=== PATIENT | male | born 1980 | race Caucasian/White ===

== ENCOUNTER 2020-01-22 20:55 | Emergency (ER) | payer BC, SELFPAY ==
[2020-01-22 21:05] VITALS: BP 143/89; PULSE 98; RESP 19; TEMP 36.6; O2SAT 98
--- NOTE | 2020-01-22 21:05 | PC.NURSE ---
patient to room. staff present with ppe on per protocol
[2020-01-22 21:08] VITALS: BP 145/81; PULSE 92; RESP 17; TEMP 36.7; O2SAT 100; BMI 30.2
== END 2020-01-22 21:13 | disposition home or self-care (01) ==
LOC: ER 21:09
PROVIDERS: Emergency Provider Emergency Medicine; PCP Emergency Medicine
DX: Z46.6 Encounter for fitting and adjustment of urinary device (principal)
CPT/HCPCS: 99281; 99282

== ENCOUNTER 2020-03-19 19:43 | Emergency (ER) | payer BC, SELFPAY ==
[2020-03-19 19:54] VITALS: BP 159/113; PULSE 87; RESP 17; TEMP 36.7; O2SAT 95; BMI 24.3
--- NOTE | 2020-03-19 19:58 | CT_ITS ---
PROCEDURE: CT SHOULDER LT WO CON CLINICAL HISTORY: injury Left shoulder pain, neck pain following injury COMPARISON: No exams were available for comparison TECHNIQUE: Axial images obtained with sagittal and coronal reformats. All CT scans at the facility use one or more dose reduction, viz: automated exposure control, ma/kV adjustment per patient size (including targeted exams where dose is matched to indication, i.e. head), or iterative reconstruction technique. FINDINGS: Unstable flexion teardrop fracture is present at C5-C6. Please see cervical spine report for further description. No acute shoulder fracture or dislocation is evident. The glenohumeral joint is intact. Prominent hypertrophic changes are present at the coracoid clavicular joint. Scattered small nodes are present in the axilla and supraclavicular region. The underlying lungs are clear IMPRESSION: 1. No acute fracture of the shoulder. 2. Prominent hypertrophic change of the coracoclavicular joint 3. Hyperflexion distraction injury at C5-C6 described in the CT C-spine report Dictated by: Dionicio Becker MD 03/19/2020 23:20 Electronically signed by Dionicio Becker MD in [place] 03/19/2020 23:20
--- NOTE | 2020-03-19 19:58 | CT_ITS ---
PROCEDURE: CT CERVICAL SPINE WO CON CLINICAL INDICATION: injury Posttraumatic pain, left shoulder neck pain, COMPARISON: No exams were available for comparison TECHNIQUE: Axial images obtained with sagittal and coronal reformats. All CT scans at the facility use one or more dose reduction, viz: automated exposure control, ma/kV adjustment per patient size (including targeted exams where dose is matched to indication, i.e. head), or iterative reconstruction technique. Axial spiral CT scanning performed of the cervical spine beginning at the base of the skull and continuing to the upper T-spine. 3-D multiplanar reconstruction with 3-D manipulation of volumetric data set in image rendering was completed by the radiologist and/or technologist with the supervision of the radiologist on independent workstation. FINDINGS: There is a hyper flexion distraction injury at C5-C6 with comminuted fractures in fragmentation of the anterior and posterior C5 and C6 vertebral bodies with narrowing of the C5-C6 intervertebral disc space anteriorly in widening of the posterior C5-C6 interspace as well as grade 1 retrolisthesis of C5 on C6 of 6 mm. There is abnormal widening of both C5-C6 facets. There is kyphosis at C5-C6. The anterior inferior aspect of C5 rests on the superior endplate of C6 5 mm posterior to the anterior aspect of C6 with bony fragments noted anteriorly. There is resultant narrowing of the canal at 11 mm and right lateral recess and right foraminal narrowing. There is mild right lateral subluxation of C5 on C6. There is prevertebral soft tissue swelling at C5-C6 with hypoattenuation within the prevertebral soft tissues consistent with hematoma. There is likely disruption of the anterior longitudinal ligament and posterior longitudinal ligament and the interspinous ligament. There is mild degenerative disc disease at C6-C7 Lung apices are clear IMPRESSION: 1. Flexion teardrop fracture distraction injury at C5-C6 with disruption of the anterior, middle, and posterior columns. There is posterior distraction of the C5 vertebral body of 6 mm with borderline canal stenosis and right lateral recess narrowing. Suggest MRI for more thorough evaluation to determine the status of the spinal cord. This is an unstable injury. Recommend emergent stabilization and neurosurgical consultation 2. Associated prevertebral soft tissue hematoma 3. [facility] report rendered 03/19/2020 at 8:12 p.m. Dictated by: Dionicio Becker MD 03/19/2020 23:13 Electronically signed by Dionicio Becker MD in [place] 03/19/2020 23:13
--- NOTE | 2020-03-19 20:16 | PC.NURSE ---
c-collar in place. pt to ct
--- NOTE | 2020-03-19 20:40 | PC.NURSE ---
critical report received from ad per dr harper.
--- NOTE | 2020-03-19 20:45 | HMH.EDGENADL ---
ED Disposition Clinical Impression: Cervical spine instability Cervical spine fracture Qualifiers: Encounter type: initial encounter Cervical vertebra fracture level: C5 Fracture type: closed Fracture morphology: unspecified fracture morphology Fracture alignment: displaced Qualified Code(s): S12.400A - Unspecified displaced fracture of fifth cervical vertebra, initial encounter for closed fracture Disposition: Xfer Short-Term Hosp Condition on Discharge: Fair Referrals: Provider,Referral, MD [Primary Care Provider] - Forms: Transfer Record - ED - Critical Care Critical Care Time: No Attestation: On 03/19/20, the high probability of a clinically significant, sudden or life threatening deterioration of the following system(s) required my full and direct attention, intervention and personal management. The time I documented below is in addition to time spent performing reported procedures but includes the following listed in this critical care notation. Medical Decision Making - Medical Records Medical records reviewed: Yes: I reviewed the patient's medical records. - [place] Inquiry Pt receiving controlled substance: No Vital Signs: 03/19/20 19:54 Temperature 98.1 F Temperature Source Oral Pulse Rate [Right Brachial] 87 Respiratory Rate 17 Blood Pressure [Right Arm] 159/113 H Blood Pressure Mean [Right Arm] 128 Blood Pressure Source [Right Arm] Automatic Cuff Blood Pressure Position [Right Arm] Sitting 02 Sat by Pulse Oximetry 95 Oxygen Delivery Method Room Air Orders (Tests/Meds): ORDERS Category Date Time Status CT cervical spine wo con Stat Cat Scan 03/19/20 19:[address] shoulder LT wo con Stat Cat Scan 03/19/20 19:58 Taken - CT Data CT Scan: C-Spine, Other (lt shoulder ) Time Received: 21:[address] Reviewed: Yes: I have viewed the radiologist's interpretation Preliminary Findings: Abnormal (see report - unstable fx ) - Physician Consults Physician Consulted: pippa Reason -: Transfer to another facilty General Adult HPI - General Chief complaint: PAIN Stated complaint: L Shoulder Pain Across Back and up into neck Time Seen by Provider: 03/19/20 20:46 Mode of Arrival: Family Vehicle Source of Information: Patient, Medical Record Limitations: No Limitations Description of Symptoms (Recalled from ER Triage Doc. by RN): 7-8 days prior was wrestling with a friend acting stupid when he injured his left shoulder. states he feels like there is a grinding sensation that is not improving and now it radiates up into his neck - History of Present Illness HPI narrative: acute lt shoulder and neck injury after wrestling with son and fell on lt shoulder Onset (ago): day(s) Location: chest, upper extremity Severity: moderate Quality: sharp Associated symptoms: denies other symptoms Treatments prior to arrival: none - Related Data Allergies Allergy/AdvReac Type Severity Reaction Status Date / Time CODEINE Allergy Mild CLOSES Uncoded 10/02/17 15:09 THROAT SULFA (SULFONAMIDE) Allergy Mild DARÍO Uncoded 10/02/17 15:09 [facility] History - Hepatitis A Screen Drug use history?: No High risk sexual behaviors?: No History of sexually transmitted infection?: No Currently employed?: No Childcare worker?: No Do you have indoor plumbing?: Yes Do you have electricity?: Yes Attestation statement:: This patient has been screened for Hepatitis A risk factors. I have reviewed the patient's past medical history: Yes ROS Obtained: Yes All systems reviewed & no additional complaints - Constitutional Constitutional: Denies fever(s) - Eyes Eyes: Denies change in vision - ENT Ears, Nose, Mouth, and Throat: Denies sore throat - Cardiovascular Cardiovascular: Denies chest pain - Respiratory Respiratory: No cough - Gastrointestinal Gastrointestingal: Denies: abdominal pain - Genitourinary Male Genitourinary: Denies hematuria - Musculoskeletal Musculoskeletal: Reports
--- NOTE | 2020-03-19 21:15 | PC.NURSE ---
pt accepted to [facility] per dr das. report called to dcn desk. info faxed to desk per request. requested cd from [facility]. reports sent in packet and via fax
[2020-03-19 21:51] VITALS: BP 155/75; PULSE 75; RESP 15; TEMP 36.7; O2SAT 99
--- NOTE | 2020-03-19 21:54 | PC.NURSE ---
pt left via stretcher and emt. care givent maria victoria mae, emt
== END 2020-03-19 22:01 | disposition short-term general hospital (02) ==
PROVIDERS: Emergency Provider Emergency Medicine
DX: S12.400A Unspecified displaced fracture of fifth cervical vertebra, initial encounter for closed fracture (principal); W51.XXXA Accidental striking against or bumped into by another person, initial encounter; Y93.72 Activity, wrestling; Y92.019 Unspecified place in single-family (private) house as the place of occurrence of the external cause
CPT/HCPCS: 72125; 73200; 96374; 99283

== ENCOUNTER 2021-05-11 17:21 | Emergency (ER) | payer BC, SELFPAY ==
[2021-05-11 17:24] VITALS: BP 141/93; PULSE 100; RESP 18; TEMP 37; O2SAT 97; BMI 26.6
--- NOTE | 2021-05-11 17:39 | XR_ITS ---
PROCEDURE INFORMATION: Exam: XR Chest Exam date and time: 05/11/2021 5:39 PM Age: 41 years old Clinical indication: Patient HX: Fever; . Smoker TECHNIQUE: Imaging protocol: XR of the chest. Views: 2 views. COMPARISON: CT SHOULDER LT WO CON 03/19/2020 8:34 PM FINDINGS: Lungs: Unremarkable. No consolidation. Pleural spaces: Unremarkable. No pleural effusion. No pneumothorax. Heart/Mediastinum: Unremarkable. No cardiomegaly. Bones/joints: Unremarkable. IMPRESSION: No acute findings.
--- NOTE | 2021-05-11 17:40 | HMH.EDGENADL ---
ED Disposition Clinical Impression: Cystitis Heat exhaustion Qualifiers: Encounter type: initial encounter Qualified Code(s): T67.5XXA - Heat exhaustion, unspecified, initial encounter Disposition: Home, Self-Care Condition on Discharge: Good Instructions: DI for Heat Exhaustion and Heat Stroke, DI for Dehydration -- Adult Additional Instructions: You have been evaluated for fever and altered mental status. Symptoms are now resolved. Overall presentation concerning for heat related illness, heat exhaustion. Please stay hydrated. Avoid prolonged environmental exposure. Follow-up with your primary care doctor. Return to the emergency department at once for any new or worsening symptoms. Prescriptions: cephALEXin [Cephalexin 500mg Tab] 500 mg PO Q6H #20 tab Transmission Status: Pending to [facility] Referrals: Cortney Garvin [Primary Care Provider] - Forms: Work/School Release Time of Disposition: 19:06 - Critical Care Critical Care Time: No Attestation: On 05/11/21, the high probability of a clinically significant, sudden or life threatening deterioration of the following system(s) required my full and direct attention, intervention and personal management. The time I documented below is in addition to time spent performing reported procedures but includes the following listed in this critical care notation. Medical Decision Making - Medical Records Medical records reviewed: Yes: I reviewed the patient's medical records. - [place] Inquiry Pt receiving controlled substance: No Vital Signs: 05/11/21 17:24 Temperature 98.6 F Temperature Source Oral Pulse Rate [Right Radial] 100 H Respiratory Rate 18 Blood Pressure [Right Arm] 141/93 H Blood Pressure Mean [Right Arm] 109 Blood Pressure Source [Right Arm] Automatic Cuff Blood Pressure Position [Right Arm] Sitting 02 Sat by Pulse Oximetry 97 Oxygen Delivery Method Room Air - Lab Data Lab Results 05/11/21 18:05: WBC 5.2, RBC 4.33 L, Hgb 13.8 L, Hct 39.1 L, MCV 90.1, MCH 31.8 H, MCHC 35.3, RDW 16.4, Plt Count 164, MPV 8.6, Neut % (Auto) 85.7 H, Lymph % (Auto) 9.3 L, [place] % (Auto) 3.8, Eos % (Auto) 0.6, Baso % (Auto) 0.5, Neut # (Auto) 4.5, Lymph # (Auto) 0.5 L, [place] # (Auto) 0.2, Eos # (Auto) 0.0, Baso # (Auto) 0.0, Total Counted 100, Neutrophils % (Manual) 86 H, Band Neutrophils % 1.0, Lymphocytes % (Manual) 7 L, Monocytes % (Manual) 6, Platelet Estimate Normal 05/11/21 18:05: Sodium 139, Potassium 3.8, Chloride 102, Carbon Dioxide 30, Anion Gap 10.8, BUN 9, Creatinine 1.10, Estimated Creat Clear 99, Estimated GFR 74, Est GFR ( Amer) 89, Glucose 100, Calcium 9.6, Total Bilirubin 1.1, AST 55, ALT 69, Alkaline Phosphatase 97, C-Reactive Protein 36.7 H, Total Protein 8.5 H, Albumin 4.6, Globulin 3.9 H, Albumin/Globulin Ratio 1.2, Lipase 80 05/11/21 18:20: Lactate 1.7 05/11/21 18:40: Urine Color [place], Urine Appearance Turbid, Urine pH 6.0, Ur Specific [place] 1.020, Urine Protein 1+, Urine Glucose (UA) Negative, Urine Ketones Negative, Urine Blood 3+, Urine Nitrate Negative, Urine Bilirubin 1+ A, Urine Urobilinogen >=8.0, Ur Leukocyte Esterase 2+ A, Urine RBC 10-20, Urine WBC 3-5, Ur Squamous Epith Cells None, Ur Transition Epith Cell Occ, Urine Bacteria Trace Result diagrams: 05/11/21 18:05 05/11/21 18:05 Orders (Tests/Meds): ED MEDICATIONS Generic Name Dose Route Start Last Admin Trade Name Freq PRN Reason Stop Dose Admin Sodium Chloride 1,000 mls @ 999 mls/hr 05/11/21 17:45 05/11/21 17:54 Sod Chlor 0.9% 1000ml Bag IV 05/11/21 18:45 999 mls/hr .[id number] MILLICENT Administration Discontinued Medications Generic Name Dose Route Start Last Admin Trade Name Freq PRN Reason Stop Dose Admin Hydrocodone Bitart/Acetaminophen 1 tab 05/11/21 19:04 Hydrocodone/Apap 5/325 Mg Tablet PO 05/11/21 19:05 ONCE ONE Ibuprofen 600 mg 05/11/21 17:40 05/11/21 17:53 Ibuprofen 600 Mg Tablet PO 05/11/21 17:41 600 mg ONCE ONE
[2021-05-11 18:15] LABS: Basophils % 0.5 % (0.1-2.0); Eosinophils % 0.6 % (0.1-12.0); Hematocrit 39.1 % (42.0-52.0); Hemoglobin 13.8 g/dL (14.1-18.0); Lymphocytes # 0.5 K/mm3 (0.7-4.5); Lymphocytes % 9.3 % (10-50); Mean Corpuscular HGB Conc 35.3 g/dL (31.8-35.4); Mean Corpuscular Hemoglobin 31.8 pg (27.0-31.2); Mean Corpuscular Volume 90.1 fl (80-94); Mean Platelet Volume 8.6 fl (7.4-10.4); Monocytes # 0.2 K/mm3 (0.1-1.0); Monocytes % 3.8 % (1.7-9.3); Neutrophils # 4.5 K/mm3 (1.8-7.8); Neutrophils % 85.7 % (37.0-80.0); Platelet Count 164 K/mm3 (142-424); Red Blood Count 4.33 M/mm3 (4.60-6.20); Red Cell Distribution Width 16.4 % (11.5-17.5); White Blood Count 5.2 K/mm3 (4.8-10.8)
[2021-05-11 18:20] LABS: MANUAL DIFFERENTIAL MANUAL DIFFERENTIAL (MANUAL DIFF)
[2021-05-11 18:22] LABS: Alanine Aminotransferase 69 U/L (12-78); Albumin Level 4.6 g/dl (3.5-5.0); Albumin/Globulin Ratio 1.2 (1.1-1.8); Alkaline Phosphatase 97 U/L (38-126); Aspartate Amino Transferase 55 U/L (17-59); Bilirubin,Total 1.1 mg/dl (0.2-1.3); Blood Urea Nitrogen 9 mg/dl (9-20); Calcium 9.6 mg/dl (8.4-10.2); Carbon Dioxide 30 mmol/L (22.0-30.0); Creatinine Clearance Estimated 99 mL/min (50-200); Estimated Glomerular Filt Rate 74 ml/min (>60); GFR (African American) 89 ML/MIN (>60); Globulin 3.9 g/dL (1.3-3.2); Glucose 100 mg/dl (74-100); Lipase 80 U/L (23-300); Potassium 3.8 mmoL/L (3.5-5.1); Sodium 139 mmol/L (136-145); Total Protein,Serum 8.5 g/dl (6.3-8.2)
[2021-05-11 18:27] LABS: C-Reactive Protein 36.7 mg/L (0-4)
[2021-05-11 18:33] LABS: Anion Gap 10.8 mEq/L (5-15); Chloride 102 mmol/L (98-107)
[2021-05-11 18:34] LABS: Lactic Acid 1.7 mmol/L (0.7-2.1)
[2021-05-11 18:44] LABS: Microscopic, Urine URINE MICROSCOPIC (MICROSCOPIC)
[2021-05-11 18:47] LABS: Appearance,Urine TURBID (Clear); Blood, Urine 3+ (Negative); Color,Urine ORANGE (Yellow); Glucose,Urine (UA) Negative (Negative); Ketones,Urine Negative (Negative); Leukocyte Esterase,Urine 2+ (Negative); Nitrate,Urine Negative (Negative); Protein,Urine 1+ (Negative); Urobilinogen,Urine >=8.0 EU/dl (0.2)
--- NOTE | 2021-05-11 18:48 | PC.NURSE ---
Urine sent to lab
[2021-05-11 18:49] LABS: Lymphocytes % 7 % (10-50); Monocytes % 6 % (2-9); Neutrophils % 86 % (42-76); Platelet Estimate Normal; Total Cells Counted 100
[2021-05-11 19:00] LABS: Bilirubin,Urine 1+ (Negative)
[2021-05-11 19:01] LABS: Bacteria,Urine Trace /lpf; Transitional Epi Cells,Urine OCC #/lpf (0-3)
[2021-05-11 19:17] VITALS: BP 130/88; PULSE 97; RESP 17; TEMP 36.7; O2SAT 98
[2021-05-11 19:47] LABS: Erythrocyte Sedimentation Rate 55 mm/hr (0-15)
== END 2021-05-11 19:25 | disposition home or self-care (01) ==
PROVIDERS: Emergency Provider Emergency Medicine; PCP Nurse Practitioner Family
DX: N30.90 Cystitis, unspecified without hematuria (principal); T67.5XXA Heat exhaustion, unspecified, initial encounter; Z88.2 Allergy status to sulfonamides; Z88.5 Allergy status to narcotic agent
CPT/HCPCS: 71046; 80053; 81001; 83605; 83690; 85007; 85025; 85651; 86140; 87086; 87088; 87186; 96365; 99283